=== PATIENT | female | born 2000 | race African-American/Black ===

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

== ENCOUNTER 2022-03-19 22:53 | Emergency (ER) | payer OTHER ==
[2022-03-19] MEDS ORDERED: Lorazepam 2 MG/ML VIAL ONE (23:40)
== END 2022-03-20 01:14 | disposition home or self-care (01) ==
LOC: ERS 22:53
DX: T40.711A Poisoning by cannabis, accidental (unintentional), initial encounter (principal); R07.9 Chest pain, unspecified; R00.0 Tachycardia, unspecified; Z79.899 Other long term (current) drug therapy
CPT/HCPCS: 93005; 96374; J2060